=== PATIENT | female | born 1995 | race Caucasian/White ===

== ENCOUNTER 2016-12-30 08:09 | Day surgery (SDC) | payer OTHER, MEDICAID ==
[2016-12-30] MEDS ORDERED: LR 1,000 ML IV ONE (08:49)
--- NOTE | 2016-12-30 09:02 | PDANEPAE ---
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 occ dizziness. headaches once or twice a week - Endocrine History Hx Diabetes: No Endocrine History Comment: hypoglycemia at times from not processing foods correctly. hormone imbalance - Renal History Hx Renal Disorders: No - Liver History Hx Hepatic Disorders: No - Neurological & Psychiatric Hx Hx Neurological and Psychiatric Disorders: Yes Neurological / Psychiatric History Comment: bipolar- rapid cycling manic bipolar. anxiety. depression - Cancer History Hx Cancer: No - Congenital Disorder History Hx Congenital Disorders: No - GI History Hx Gastrointestinal Disorders: Yes Gastrointestinal History Comment: reflux. gastroparesis. psuedo blockage in intestines. doesn't have regular bm's. vomitting. abd pain - Other Health History Other Health History: wears glasses/ contacts. chronic joint pain. chronic fatigue - Chronic Pain History Chronic Pain: Yes (abd pain) - Surgical History Prior Surgeries: wrist surgery at 13 yo. twyla at 18 yo- emergent. egd's regularly ANE Review of Systems - Exercise capacity METS (RN): 4 METS ANE Patient History - Allergies Allergies/Adverse Reactions: albuterol Allergy (Verified 12/28/16 15:13) Anaphylaxis bee pollen Allergy (Verified 12/28/16 15:14) esomeprazole [From Nexium] Allergy (Verified 12/28/16 15:13) Tingling of mouth/throat Opioids - Morphine Analogues Allergy (Verified 12/28/16 15:32) Other-Enter Comments - Home Medications Home Medications: Acidophilus TID 12/28/16 [Last Taken 12/29/16] Latuda 12/28/16 [Last Taken 12/29/16 20:00] Motillium 10 mg TID 12/28/16 [Last Taken 12/29/16 20:00] Pantoprazole Sodium 12/28/16 [Last Taken 12/29/16 20:00] Sucralfate 12/28/16 [Last Taken 12/29/16 20:00] Zofran 12/28/16 [Last Taken 12/28/16] - NPO status NPO Since - Liquids (Date): 12/29/16 NPO Since - Liquids (Time): 20:00 NPO Since - Solids (Date): 12/29/16 NPO Since - Solids (Time): 20:00 - Anes Hx Hx Anesthesia Complications (with details): post op agitation - Smoking Hx Smoking Status: Heavy smoker - Alcohol Use Alcohol Use: None - Family Anes Hx Family Anes Hx: none Family Hx Anesthesia Complications: mother- n/v ANE Labs/Vital Signs - Vital Signs Blood Pressure: 96/58 Heart Rate: 60 Respiratory Rate: 16 O2 Sat (%): 98 Height: 157.48 cm Weight: 51.71 kg ANE Physical Exam - Airway Neck exam: FROM Mallampati Score: Class 1 Mouth exam: normal dental/mouth exam - Pulmonary Pulmonary: no respiratory distress - Cardiovascular Cardiovascular: regular rate and rhythym - ASA Status ASA Status: II ANE Anesthesia Plan Anesthesia Plan: GA with mask, MAC
[2016-12-30] MEDS ORDERED: PROPOFOL 200 MG/20 ML VIAL ONE ×3 (09:08)
--- NOTE | 2016-12-30 09:23 | PDGENHP ---
History & Physical Chief Complaint: hematemesis History of Present Illness: hematemesis Pertinent Past, Social, Family History: see [facility] note Cardiorespiratory Assessment: normal
[2016-12-30] MEDS ORDERED: DEXAMETHASONE 4 MG/ML VIAL IVP PRN (09:40)
[2016-12-30] MEDS ORDERED: PROMETHAZINE HCL 25 MG/ML INJ IVP PRN (09:40)
[2016-12-30] MEDS ORDERED: NALOXONE HCL 0.4 MG/ML INJ IVP PRN (09:40)
[2016-12-30] MEDS ORDERED: LR 500 ML IV PRN (09:40)
[2016-12-30] MEDS ORDERED: ONDANSETRON 4 MG/2 ML VIAL IVP PRN (09:40)
[2016-12-30] MEDS ORDERED: METOCLOPRAMIDE 10 MG/2 ML VIAL IVP PRN (09:40)
--- NOTE | 2016-12-30 09:41 | POSTANESTH ---
Post Anesthetic Evaluation Cardiovascular Status: Normal, Stable Respiratory Status: Normal, Stable Level of Consciousness/Mental Status: Can Participate in Eval Pain Control: Adequate, Prn Tx Ordered Nausea/Vomiting Control: Adequate, Prn Tx Ordered Complications Possibly Related to Anesthesia: None Noted
[2016-12-30] MEDS ORDERED: ONDANSETRON 4 MG/2 ML VIAL ONE (09:45)
--- NOTE | 2016-12-30 10:00 | GPN ---
[f rep st] PROCEDURE NOTE DATE OF PROCEDURE: 12/30/2016 PROCEDURE: EGD with biopsies. INDICATION: Hematemesis. CONSENT: Informed consent was obtained from the patient after explanation of risks, benefits, and alternatives to the procedure. MEDICATIONS GIVEN: Propofol per Anesthesia. COMPLICATIONS: None. PROCEDURE IN DETAIL: After adequate sedation was achieved, the forward viewing endoscope was advanced through the oropharynx, esophagus, stomach, and as far as the 2nd portion of the duodenal. Retroflexion was performed in the stomach. The patient toleration of the procedure was good. The views were good. ESTIMATED BLOOD LOSS: None. FINDINGS: ESOPHAGUS: Normal appearing esophagus with normal GE junction and no evidence of esophagitis, esophageal ulceration, of esophageal mucosal disease. STOMACH: There was a small amount of food present in the fundus/body of the stomach. Mild gastritis characterized by erythema, was seen in the body and antrum of the stomach. Biopsies were taken from the body and antrum to assess for H pylori. No ulceration or source of bleeding was seen. DUODENUM: The duodenal bulb and 2nd portion of the duodenal had normal appearing mucosa without significant lesions or abnormalities. IMPRESSION: No source of hematemesis/coffee-ground emesis seen, although mild gastritis was present in the stomach. A small amount of bleeding may occur with retching and nausea and vomiting. RECOMMENDATIONS: 1. Consider PPI therapy depending on patient's history of allergies. I have not ordered a PPI today given the allergy history and need to obtain a better understanding of these. 2. Follow up with MARCELLO Storm, in the GI clinic. 3. Discharge home today on previous diet and regular medications. 4. Await biopsy results. We will call her with these results. /[id number]/MODL MTDD
[2016-12-30 10:01] VITALS: TEMP 96.8
[2016-12-30 10:14] VITALS: O2SAT 97
[2016-12-30 10:19] VITALS: BP 98/63; PULSE 54; RESP 16
== END 2016-12-30 10:28 | disposition home or self-care (01) ==
LOC: FSGY 08:09
PROVIDERS: ATTEND Internal Medicine
PROC: 0DB68ZX Excision of Stomach, Via Natural or Artificial Opening Endoscopic, Diagnostic (ICD-10-PCS; principal; 2016-12-30 09:30)
DX: K92.0 Hematemesis (principal); K29.70 Gastritis, unspecified, without bleeding; R11.2 Nausea with vomiting, unspecified; K21.0 Gastro-esophageal reflux disease with esophagitis; K31.84 Gastroparesis
CPT/HCPCS: J2405; J2704

== ENCOUNTER → 2017-11-17 | Outpatient (CLI) | payer OTHER, MEDICAID | LOC: FLAB 14:44 → FIMAGING 15:06 | PROVIDERS: ATTEND Registered Nurse | DX: M79.644 Pain in right finger(s) (principal) ==

== ENCOUNTER → 2017-11-29 | Outpatient (CLI) | payer OTHER, MEDICAID | LOC: FIMAGING 19:25 | PROVIDERS: ATTEND Physician Assistant | DX: M65.89 Other synovitis and tenosynovitis, multiple sites (principal) ==

== ENCOUNTER → 2018-03-08 | Outpatient (CLI) | payer OTHER, MEDICAID | LOC: FIMAGING 16:04 | PROVIDERS: ATTEND Family Medicine | DX: R19.05 Periumbilic swelling, mass or lump (principal) ==

== ENCOUNTER → 2018-08-10 | Outpatient (CLI) | payer OTHER, MEDICAID | LOC: FIMAGING 12:05 | PROVIDERS: ATTEND Registered Nurse | DX: N63.22 Unspecified lump in the left breast, upper inner quadrant (principal) ==